=== PATIENT | male | born 1950 | race Caucasian/White ===

== ENCOUNTER 2023-05-12 17:33 | Observation (INO) | payer MEDICARE, SELFPAY ==
[2023-05-12] VITALS (13 sets, daily range): BP systolic 119–151; BP diastolic 78–95; PULSE 62–90; RESP 12–21; TEMP 36.4–37.7; O2SAT 90–97; BMI 22.2; BMI 19.9
--- NOTE | 2023-05-12 17:42 | CT_ITS ---
[address] [address] Patient Name: SEGUNDO MCCOY MRN: [id number] date: 1950 Sex: M Assigned Patient Location: ED.MAIN Current Patient Location: ED.MAIN Accession/Order Number: [id number] Exam Date: 05/12/2023 18:15 Report Date: 05/12/2023 19:09 At the request of: MONTE LO Procedure: CT abdomen pelvis wo con EXAM: CT abdomen pelvis wo con; [id number] REASON FOR EXAM: right flank pain TECHNIQUE: Helical CT images of the abdomen and pelvis were obtained without IV contrast. Multiplanar reformats were generated at the scanner. Dose reduction technique used: Automated exposure control and/or adjustment of the mA and/or kV according to patient size and/or use of iterative reconstruction technique. COMPARISON: None. FINDINGS: Note: Compared with a contrast-enhanced CT exam, noncontrast images are relatively insensitive for detection of solid organ and vascular abnormalities. Visualized Chest: -Mild right basilar consolidation. -Medium-sized hiatal hernia containing approximately 15% of the stomach. Abdomen: Liver: Within normal limits. Gallbladder: No calcified gallstones. No acute inflammatory changes. Bile Ducts: No significant biliary ductal dilatation. Pancreas: No ductal dilatation or inflammatory changes. Spleen: No splenomegaly. Adrenals: No nodules. Kidneys: -No stones or hydronephrosis. -Simple appearing right renal cyst measuring up to 3.7 cm. Vascular: No aortic aneurysm. Lymph Nodes: No adenopathy. Abdominal Wall: Large right inguinal hernia containing the ileocecal valve and intra-abdominal fat. Small fat-containing left inguinal hernia and a small fat-containing umbilical hernia. Pelvis: No mass or adenopathy. Bowel/Peritoneal Cavity/Mesentery: -Minimal colonic diverticulosis without evidence of acute diverticulitis. -No bowel obstruction or significant ileus. -No acute inflammatory changes. -No free air or free fluid. Musculoskeletal: No acute fracture or suspicious osseous lesion. Grade 2 anterolisthesis of L5 on S1 secondary to chronic bilateral pars defects. CT/CT abdomen pelvis wo con IMPRESSION: 1. Right basilar consolidation. Differential includes aspiration, pneumonia, and pulmonary infarct. 2. No kidney stones or hydronephrosis. 3. Large bowel-containing right inguinal hernia. No evidence of bowel obstruction. Electronically authenticated by: NICOLASA DELACRUZ Date: 05/12/2023 19:09
[2023-05-12] MEDS: HYDROMORPHONE HCL 0.5 MG/0.5 ML SYRINGE IV ×3 (17:55→23:57)
[2023-05-12] MEDS: ONDANSETRON PF 4 MG/2 ML VIAL IV (17:55)
[2023-05-12] MEDS: KETOROLAC TROMETHAMINE 30 MG/ML VIAL IVP (17:55)
[2023-05-12 18:15] LABS: Bilirubin Urine NEGATIVE (NEGATIVE); Blood Urine NEGATIVE (NEGATIVE); Clarity Urine CLEAR (CLEAR); Color Urine YELLOW (YELLOW); Glucose Urine UA NEGATIVE (NEGATIVE); Ketones Urine NEGATIVE (NEGATIVE); Leukocyte Esterase Urine NEGATIVE (NEGATIVE); Nitrite Urine NEGATIVE (NEGATIVE); Protein Urine NEGATIVE (NEG/TRACE); Specific Gravity Urine 1.025 (1.005-1.025); pH Urine 5.5 (5.0-9.0)
[2023-05-12 18:18] LABS: Anion Gap 14.5; BUN Creatinine Ratio 15.1; Calcium 9.5 mg/dL (8.5-10.1); Carbon Dioxide 28.3 mmol/L (21.0-32.0); Chloride 104 mmol/L (98-107); Estimated GFR (African America >60 (>=60); Estimated GFR (Non-African Ame >60 (>=60); Glucose 123 mg/dL (74-106); Potassium 3.8 mmol/L (3.5-5.1); Sodium 143 mmol/L (136-145)
[2023-05-12 18:25] LABS: Urine Microscopic Indicated NO
[2023-05-12 18:27] LABS: Basophils Absolute Auto 0.1 10^3/uL (0.0-0.1); Basophils Percent Auto 0.5 % (0.2-2.0); Eosinophils Absolute Auto 0.1 10^3/uL (0.0-0.7); Eosinophils Percent Auto 0.9 % (0.9-7.0); Hemoglobin 14.6 g/dL (14.0-18.0); Immature Granulocytes Abs Auto 0.04 10^3/uL (0.00-0.03); Immature Granulocytes Pct Auto 0.3 % (0.0-0.5); Lymphocytes Absolute Auto 2.7 10^3/uL (1.2-3.8); Lymphocytes Percent Auto 18.1 % (20.5-60.0); Mean Corpuscular HGB Conc 33.2 g/dL (29.9-35.2); Mean Corpuscular Hemoglobin 32.1 pg (25.9-34.0); Mean Corpuscular Volume 96.7 fL (80.0-94.0); Mean Platelet Volume 9.4 fL (9.5-13.5); Monocytes Absolute Auto 1.6 10^3/uL (0.3-0.8); Monocytes Percent Auto 10.5 % (1.7-12.0); Neutrophils Absolute Auto 10.4 10^3/uL (1.4-6.5); Neutrophils Percent Auto 69.7 % (43.0-75.0); Platelet Count 274 10^3/uL (150-450); Red Blood Count 4.55 10^6/uL (4.70-6.10); Red Cell Distribution Width 13.7 % (11.0-15.0); White Blood Count 14.9 10^3/uL (4.0-11.0)
--- NOTE | 2023-05-12 18:57 | ED_ITS ---
HPI - General Adult General Chief complaint: Abdominal Pain Stated complaint: Flank Pain right side Time Seen by Provider: 05/12/23 17:36 Source: patient Mode of arrival: walk-in Limitations: no limitations History of Present Illness HPI narrative: Patient presents with sudden onset of pain just below the right scapula in what he describes the right flank but is actually in the lower part of the posterior right rib cage. He denied any recent injury or activity that might account for this pain. It is worse with movement of the torso, coughing or deep breath. He sometimes as he moves will suddenly wince in pain as it catches he told me. No GI or symptoms. No fever or chills. No cough. Related Data Allergies Allergy/AdvReac Type Severity Reaction Status Date / Time No Known Drug Allergies Allergy Verified 05/12/23 17:41 Exam Narrative Exam Narrative: Nurses notes and vital signs reviewed and patient is not hypoxic. Afebrile General: Well-appearing and in no apparent distress. Skin: Warm, dry, no pallor noted. No rash. Eye: Pupils are equal, round and EOMI. No scleral icterus. Ears, Nose, Mouth, and Throat: Oral mucosa is moist Cardiovascular: Regular Rate and Rhythm without murmur, gallop or rub. Respiratory: No accessory muscle use or respiratory distress. Lungs are clear to auscultation, no wheezing, rales or rhonchi Chest Wall: no tenderness Back: No midline thoracic or lumbar vertebral tenderness. No CVA tenderness. He has tenderness along the posterolateral right ribs inferior to the scapula but superior to the costovertebral angle. Musculoskeletal: normal ROM, no calf or popliteal tenderness, no lower e xtremity edema/swelling GI: Abdomen is soft, non-distended. Normal bowel sounds. No masses appreciated. No tenderness to palpation. No rebound, guarding, or rigidity noted. Neurological: A&O x4. No cranial nerve dysfunction observed. No truncal ataxia. Moves all extremities. Sensation intact. Psychiatric: Cooperative and interactive. Normal mood and affect. Constitutional Vital Signs, click to edit/add: Last Vital Signs Temp 97.6 F 05/12/23 17:37 Pulse 77 05/12/23 17:37 Resp 16 05/12/23 17:37 BP 151/95 H 05/12/23 17:37 O2 Del Method Room Air 05/12/23 17:37 Course Vital Signs Vital signs: Vital Signs Temperature 97.6 F 05/12/23 17:37 Pulse Rate 77 05/12/23 17:37 Respiratory Rate 16 05/12/23 17:37 Blood Pressure 151/95 H 05/12/23 17:37 Oxygen Delivery Method Room Air 05/12/23 17:37 Temperature 97.6 F 05/12/23 17:37 Pulse Rate 77 05/12/23 17:37 Respiratory Rate 16 05/12/23 17:37 Blood Pressure 151/95 H 05/12/23 17:37 Oxygen Delivery Method Room Air 05/12/23 17:37 Medical Decision Making MDM Narrative Medical decision making narrative: Peripheral IV established that we give this patient pain medicine. He received Toradol and low-dose Dilaudid. He was markedly improved afterwards. Blood and urine were sent for testing. He has a white blood cell count of 14.9. BMP and urine are negative. CT scan is pending. Patient signed out to Dr. Phillips at 7 PM shift change to follow-up with CT result and determine final disposition for this patient. Lab Data Labs: Lab Results 05/12/23 05/12/23 Range/Units 17:59 18:06 WBC 14.9 H (4.0-11.0) 10^3/uL RBC 4.55 L (4.70-6.10) 10^6/uL Hgb 14.6 (14.0-18.0) g/dL Hct 44.0 (42.0-54.0) % MCV 96.7 H (80.0-94.0) fL MCH 32.1 (25.9-34.0) pg MCHC 33.2 (29.9-35.2) g/dL RDW 13.7 (11.0-15.0) % Plt Count 274 (150-450) 10^3/uL MPV 9.4 L (9.5-13.5) fL Neut % (Auto) 69.7 (43.0-75.0) % Lymph % (Auto) 18.1 L (20.5-60.0) % [place] % (Auto) 10.5 (1.7-12.0) % Eos % (Auto) 0.9 (0.9-7.0) % Baso % (Auto) 0.5 (0.2-2.0) % Neut # (Auto) 10.4 H (1.4-6.5) 10^3/uL Lymph # (Auto) 2.7 (1.2-3.8) 10^3/uL [place] # (Auto) 1.6 H (0.3-0.8) 10^3/uL Eos # (Auto) 0.1 (0.0-0.7) 10^3/uL Baso # (Auto) 0.1 (0.0-0.1) 10^3/uL Abs Immat Gran (auto) 0.04 H (0.00-0.03) 10^3/uL Imm/Tot Granulo (auto) 0.3 (0.0-0.5) % Sodium 143 (136-145) mmol/L Potassium 3.8 (3.5-5.1) mmol/L Chloride 104 (98-107) mmol/L Carbon Dioxide 28.3 (21.0-32.0) mmol/L Anion Gap 14.5 BUN 16.0 (7.0-18.0) mg/dL Creatinine 1.06 (0.70-1.30) mg/dL Est GFR ( Amer) >60 (>=60) Est GFR (Non-Af Amer) >60 (>=60) BUN/Creatinine Ratio 15.1 Glucose 123 H (74-106) mg/dL Calcium 9.5 (8.5-10.1) mg/dL Urine Color Yellow (YELLOW) Urine Clarity Clear (CLEAR) Urine pH 5.5 (5.0-9.0) Ur Specific [place] 1.025 (1.005-1.025) Urine Protein Negative (NEG/TRACE) mg/dL Urine Glucose (UA) Negative (NEGATIVE) mg/dL Urine Ketones Negative (NEGATIVE) mg/dL Urine Occult Blood Negative (NEGATIVE) Urine Nitrite Negative (NEGATIVE) Urine Bilirubin Negative (NEGATIVE) Urine Urobilinogen 1.0 (0.2-1.0) EU/dL Ur Leukocyte Esterase Negative (NEGATIVE) Discharge Plan Discharge Chief Complaint: Abdominal Pain Clinical Impression: Back pain Patient Disposition: Still a Patient Print Language: Slovak Referrals: Angelito Shore MD [Primary Care Provider] - 1 week
--- NOTE | 2023-05-12 19:19 | CT_ITS ---
The [address] [address] Patient Name: SEGUNDO MCCOY MRN: [id number] date: 1950 Sex: M Assigned Patient Location: ER Current Patient Location: Accession/Order Number: [id number] Exam Date: 05/12/2023 19:38 Report Date: 05/12/2023 20:16 At the request of: SUYAPA HALLMAN Procedure: CT angio chest CT angio chest 05/12/2023 6:38 PM CDT: History: Abn CT abdomen w/o contrast, rule out PE/infarct Chest pain. Possible pulmonary embolism. Comparison: None. Technique: IV Contrast enhanced CTA imaging of the chest. Sagittal and coronal MIP reformatted images are provided. This CT exam was performed using one or more of the following dose reduction techniques: Automated exposure control, adjustment of the mA and/or KV according to patient size, or use of iterative reconstruction technique. Findings: The central airway is midline and patent. There is a 5 mm left lower lobe pulmonary nodule. There is bibasilar atelectasis. There are groundglass infiltrates in both lung bases, right greater than left. There is a trace right pleural effusion. The heart is enlarged. There is no pericardial effusion. There are acute pulmonary emboli involving a few of the peripheral segmental pulmonary arteries of the right lower lobe. There is no evidence of right heart strain. There is a downstream infarct to the periphery of the right lower lobe lung base. There is a moderate size hiatal hernia. Limited imaging through the upper abdomen reveals no acute abnormality. There is degenerative disc disease of the thoracic spine. There are calcified mediastinal lymph nodes reflecting old granulomatous disease. There is advanced degenerative change of both shoulders. CT/CT angio chest Impression: 1. Acute right lower lobe pulmonary emboli without evidence of right heart strain. 2. Developing right lower lobe pulmonary infarct. 3. Trace right pleural effusion. 4. 5 mm left lower lobe pulmonary nodule. Recommend follow-up CT imaging of the chest and 6-12 months. Electronically authenticated by: RUTH HILL Date: 05/12/2023 20:16
[2023-05-12 20:35] LABS: Partial Thromboplastin Time 27.6 sec (22.3-36.2)
--- NOTE | 2023-05-12 20:38 | ECG_ITS ---
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
[2023-05-12 20:45] LABS: INR 0.99; Prothrombin Time 10.5 sec (9.0-11.6)
[2023-05-12] MEDS: HEPARIN SODIUM (PORCINE) 5,000 UNIT/ML VIAL 5400 UNIT IV (21:25)
[2023-05-12] MEDS: HEPARIN SODIUM,PORCINE/D5W 25,000 UNIT/500 ML IV.SOLN 24.4939999999999998 UNIT IV (21:31)
[2023-05-13] VITALS (58 sets, daily range): BP systolic 107–143; BP diastolic 67–89; PULSE 46–71; RESP 11–27; TEMP 36.6–37.3; O2SAT 92–99
[2023-05-13] MEDS: RAMELTEON 8 MG TABLET PO (00:50)
[2023-05-13] MEDS: HYDROMORPHONE HCL 0.5 MG/0.5 ML SYRINGE IV (03:13)
[2023-05-13 03:37] LABS: Basophils Absolute Auto 0.1 10^3/uL (0.0-0.1); Basophils Percent Auto 0.4 % (0.2-2.0); Eosinophils Absolute Auto 0.1 10^3/uL (0.0-0.7); Eosinophils Percent Auto 0.9 % (0.9-7.0); Hematocrit 36.5 % (42.0-54.0); Hemoglobin 12.1 g/dL (14.0-18.0); Immature Granulocytes Abs Auto 0.17 10^3/uL (0.00-0.03); Immature Granulocytes Pct Auto 1.3 % (0.0-0.5); Lymphocytes Absolute Auto 3.7 10^3/uL (1.2-3.8); Lymphocytes Percent Auto 27.4 % (20.5-60.0); Mean Corpuscular HGB Conc 33.2 g/dL (29.9-35.2); Mean Corpuscular Hemoglobin 31.9 pg (25.9-34.0); Mean Corpuscular Volume 96.3 fL (80.0-94.0); Mean Platelet Volume 9.2 fL (9.5-13.5); Monocytes Absolute Auto 1.2 10^3/uL (0.3-0.8); Monocytes Percent Auto 8.6 % (1.7-12.0); Neutrophils Absolute Auto 8.3 10^3/uL (1.4-6.5); Neutrophils Percent Auto 61.4 % (43.0-75.0); Platelet Count 203 10^3/uL (150-450); Red Blood Count 3.79 10^6/uL (4.70-6.10); Red Cell Distribution Width 13.9 % (11.0-15.0); White Blood Count 13.5 10^3/uL (4.0-11.0)
[2023-05-13 03:42] LABS: Alanine Aminotransferase 15 U/L (16-63); Albumin Globulin Ratio 0.9; Albumin Level 2.8 g/dL (3.4-5.0); Alkaline Phosphatase 53 U/L (46-116); Anion Gap 10.4; Aspartate Amino Transferase 16 U/L (15-37); BUN Creatinine Ratio 18.9; Calcium 8.4 mg/dL (8.5-10.1); Carbon Dioxide 27.7 mmol/L (21.0-32.0); Chloride 105 mmol/L (98-107); Estimated GFR (African America >60 (>=60); Estimated GFR (Non-African Ame >60 (>=60); Globulin 3.2 g/dL; Glucose 144 mg/dL (74-106); Potassium 3.1 mmol/L (3.5-5.1); Sodium 140 mmol/L (136-145)
[2023-05-13 04:11] LABS: PTT Heparin Monitor 121.9 sec (48.2-68.6)
[2023-05-13] MEDS: HYDROCODONE/ACET 5-325 MG TABLET 1 TAB PO ×2 (08:12→12:13)
[2023-05-13] MEDS: ATORVASTATIN CALCIUM 40 MG TABLET PO (08:12)
[2023-05-13] MEDS: AMLODIPINE BESYLATE 5 MG TABLET 2.5 MG PO (08:12)
[2023-05-13] MEDS: CHLORTHALIDONE 25 MG TABLET PO (08:12)
[2023-05-13] MEDS: METOPROLOL SUCCINATE 25 MG TAB.ER.24H PO (08:13)
[2023-05-13] MEDS: LOSARTAN POTASSIUM 50 MG TABLET 100 MG PO (08:13)
[2023-05-13] MEDS: OMEPRAZOLE 20 MG CAPSULE.DR PO (08:13)
[2023-05-13 08:27] LABS: PTT Heparin Monitor 31.4 sec (48.2-68.6)
--- NOTE | 2023-05-13 08:52 | CA_ITS ---
Patient Name: SEGUNDO MCCOY MR#: [id number] : 1950 Exam Date: 05/13/2023 Ordering Doctor: DR Casa Marquis . ECHOCARDIOGRAM REPORT PROCEDURE: CA ECHO DOPPLER COMPLETE INDICATIONS: Pulmonary emboli, h/o DE, hypertension COMPARISON: None. DESCRIPTION: COMPLETE ECHOCARDIOGRAM Real-time transthoracic echocardiography with 2D, M-mode, spectral and color flow Doppler performed. QUALITY: Technical quality was good. 70 , 138#, BSA 1.78 m2, BP 143/80 LEFT VENTRICLE: Normal chamber size. Proximal septal hypertrophy (sigmoid septum). Normal systolic function. LV EF: Normal left ventricular ejection fraction, (>55%). DIASTOLIC: Normal diastolic function. ATRIAL SEPTUM: LEFT ATRIUM: Mild dilatation. RIGHT ATRIUM: Normal chamber size. RIGHT VENTRICLE: Normal chamber size. Normal right ventricular systolic function. TRICUSPID VALVE: Normal mobility and thickness. No stenosis with trivial regurgitation. No evidence of pulmonary hypertension. RVSP 34 mmHg MITRAL VALVE: Normal mobility and thickness. No evidence of mitral valve stenosis. There is no mitral annular calcification. Trivial mitral regurgitation. AORTIC VALVE: Normal trileaflet appearance. Mildly calcified aortic valve. Mildly diminished mobility. No evidence of aortic valve stenosis. No aortic regurgitation. AORTIC ROOT: Normal diameter and appearance. PULMONIC VALVE: Normal thickness and mobility. No stenosis. No regurgitation. PERICARDIUM: No evidence of pericardial effusion. IVC: Not well visualized. PLEURA: CONCLUSION: 1. Normal left ventricular size and systolic function. LVEF is 60%. 2. Normal right ventricular size and systolic function. 3. No significant valvular dysfunction. 4. Normal diastolic function. 5. Normal right-sided pressures. Adult Echocardiography Procedure Report Left Ventricle LVEDD (3.7 - 5.6 cm): 3.72 cm LVESD (2.2 - 4.0 cm): 2.47 cm LVIVS thickness (0.6 - 1.2 cm): 1.26 cm LVPW thickness (0.5 - 1.0 cm): 1.00 cm e': 0.11 m/s E - e': 8.45 LVOT Max Gradient: 7.44 mm[Hg] LVOT Area (cm2): 1.36 m/s Peak Velocity (LVOT): 1.36 m/s Mean Velocity (LVOT): 0.90 m/s LVOT Diameter 2.40 cm Left Atrium LA Volume Index (2D A2C): 38.49 ml/m2 Left Atrium Systolic Dimension: 3.59 cm Mitral Valve MV E to A Ratio: 0.97 Mitral Valve A-Wave Peak Velocity: 0.94 m/s Mitral Valve E-Wave Peak Velocity: 0.91 m/s Right Ventricle Aorta AO Root Diam: 3.82 cm Ascending Ao Diam: 3.02 cm Aortic Valve AoV Area ([place]): 4.05 cm2, 4.05 cm2 AoV Area (VTI): 3.65 cm2, 3.65 cm2 Peak Velocity(Antegrade Flow): 1.53 m/s Peak Gradient(Antegrade Flow): 9.32 mm[Hg] Mean Velocity(Antegrade Flow): 1.05 m/s Mean Gradient(Antegrade Flow): 5.09 mm[Hg] Velocity Time Integral: 35.54 cm Tricuspid Valve Peak Velocity (Regurgitant Flow): 2.50 m/s, 2.76 m/s Pulmonic Valve Peak Velocity: 0.85 m/s Peak Gradient: 2.80 mm[Hg], 3.00 mm[Hg] Right Atrium Dictated by: Ashkan Doll M.D. on 05/13/2023 at 18:03 Approved by: Ashkan Doll M.D. on 05/13/2023 at 18:06
[2023-05-13] MEDS: POTASSIUM CHLORIDE 10 MEQ ER TABLET 20 MEQ PO (09:00)
[2023-05-13] MEDS: APIXABAN 5 MG TABLET 10 MG PO (09:00)
--- NOTE | 2023-05-13 09:17 | SWNOTE1 ---
SW consulted due to financial concerns, issues with paying medical bills. SW spoke with pt in regards to his medical bills/financial concerns. Pt voiced he was up at [facility] around [place] and he is getting bills for his stay. He also voiced his was down in the Emergency Room a few weeks ago at this hospital. SW advised pt that many hospitals are willing to set up a payment plan with pt's, as long as a pt is able to pay something, even if it $20 a month, they will work with you. He did voice understanding. SW advised him to call the hospitals and speak to someone in patient finances and they will be able to assist. Pt does have insurance and he voiced they have been good and cover most of the bills. Pt does voice he is doing well at home and is at home with his . No other concerns financially. They are able to afford housing, food, electric/heat, and other bills. At this time pt has no further questions or concerns.
--- NOTE | 2023-05-13 09:28 | US_ITS ---
The [address] [address] Patient Name: SEGUNDO MCCOY MRN: [id number] date: 1950 Sex: M Assigned Patient Location: ICU Current Patient Location: ICU Accession/Order Number: [id number] Exam Date: 05/13/2023 13:25 Report Date: 05/13/2023 15:19 At the request of: CECIL FLORENCE Procedure: US venous doppler UE BI US venous doppler UE BI, 05/13/2023 1:25 PM EDT INDICATION: Pulmonary embolism COMPARISON: No prior upper extremity venous ultrasound available for comparison at time of this dictation. TECHNIQUE: Multi-planar real-time ultrasonography of the bilateral upper extremity venous system using grayscale imaging supplemented by color Doppler. Augmentation and compression maneuvers were utilized as needed. FINDINGS: The jugular, subclavian, axillary, brachial, antecubital, basilic, radial and ulnar veins are fully compressible with continuous antegrade flow. Distal right cephalic vein with echogenic filling defect, lack of compressibility and absence of vascular flow. Left cephalic vein fully compressible with vascular flow. Respiratory variation and response to augmentation normal. US/US venous doppler UE BI IMPRESSION: 1. Negative for deep venous thrombosis within either upper extremity. 2. Positive superficial thrombus right distal cephalic vein. Electronically authenticated by: LESVIA NEUMANN Date: 05/13/2023 15:19
--- NOTE | 2023-05-13 09:28 | US_ITS ---
The [place] [id number] Patient Name: SEGUNDO MCCOY MRN: [id number] date: 1950 Sex: M Assigned Patient Location: ICU Current Patient Location: ICU Accession/Order Number: [id number] Exam Date: 05/13/2023 13:25 Report Date: 05/13/2023 15:00 At the request of: CECIL FLORENCE Procedure: US venous doppler LE BI EXAMINATION: US venous doppler LE BI HISTORY: origin of PE COMPARISON: No relevant comparison available. FINDINGS: REGION: Bilateral lower extremities THROMBI: Noncompressible thrombus involving the left common femoral, femoral, popliteal, and calf veins. COMPRESSIBILITY: Noncompressible segments. FLOW: Absent flow on left. OTHER: None. US/US venous doppler LE BI IMPRESSION: 1. Extensive deep vein thrombus throughout left lower extremity. 2. No deep vein thrombus within right lower extremity. Electronically authenticated by: MADISON SUERO Date: 05/13/2023 15:00
[2023-05-13 09:54] LABS: Estimated Average Glucose 105 mg/dL; Glycohemoglobin A1C 5.3 % (4.5-6.2)
--- NOTE | 2023-05-13 10:16 | PM.HP ---
HPI H&P: HPI History of Present Illness Chief complaint: Flank Pain right side Pulmondry embolism Narrative: 72 y/o male to ER with back pain. C/o pain in right mid back below scapula and in flank for several days prior. Initially sudden, sharp pain that lasted few seconds. Pain worse with movement, twisting, inspiration, or cough. Day admission developed severe pain and constant. Mild SOB and chest discomfort. No cough. Afebrile. To ER and CT abdomen showed right basilar consolidation suspicious for infiltrate vs infarct. CTA showed PE. Admitted for treatment. Started heparin drip but PTT elevated and held. Repeat PTT low. Denies any recent prolonged imobilization or travel. No recent URI or covid. No family history of DVT or PE. No recent swelling in feet or arms. Opioid HPI Opioid Management Most Recent Opioid Data: Last Pain Assessment 05/13/23 14:00 Last MAR Pain Assessment 05/13/23 04:38 Last ORT Total Score 0 05/12/23 22:18 Last ORT Risk Category Low Risk 05/12/23 22:18 Review of Systems ROS Constitutional Denies: fever, chills or fatigue Cardiovascular Reports: chest pain; Denies: palpitations, edema or lightheadedness Respiratory Reports: shortness of breath; Denies: cough or wheezing Gastrointestinal Denies: abdominal pain, nausea, vomiting or diarrhea Genitourinary Denies: painful urination Musculoskeletal Reports: back pain PFSH PFSH Medical History (Updated 05/13/23 @ 14:47 by Casa Marquis MD) Back pain ?M54.9 - Dorsalgia, unspecified (ICD-10) Inguinal hernia ?K40.90 - Unilateral inguinal hernia, without obstruction or gangrene, not specified as recurrent (ICD-10) Elevated cholesterol ?E78.00 - Pure hypercholesterolemia, unspecified (ICD-10) Heart attack ?I21.9 - Acute myocardial infarction, unspecified (ICD-10) Family History (Updated 05/12/23 @ 23:10 by Linnette Chavarria RN) Mother Family history of COPD (chronic obstructive pulmonary disease) Family history of cancer Mother Family history of cancer Father Family history of hypertension Other Family history of myocardial infarction Social History Highest level of school completed/degree received: high school graduate Meds Home Medications and Allergies Home Medications ?Medication ?Instructions ?Recorded ?Confirmed ?Type amlodipine 2.5 mg tablet 2.5 mg PO DAILY 05/12/23 05/12/23 History atorvastatin 40 mg tablet 40 mg PO DAILY 05/12/23 05/12/23 History chlorthalidone 25 mg tablet 25 mg PO DAILY 05/12/23 05/12/23 History losartan 100 mg tablet 100 mg PO DAILY 05/12/23 05/12/23 History melatonin 10 mg tablet 10 mg PO DAILY 05/12/23 05/12/23 History metoprolol succinate 25 mg 25 mg PO DAILY 05/12/23 05/12/23 History tablet,extended release 24 hr omeprazole 20 mg capsule,delayed 20 mg PO DAILY 05/12/23 05/12/23 History release potassium chloride 20 mEq 20 meq PO DAILY 05/12/23 05/12/23 History tablet,extended release apixaban 5 mg tablet (Eliquis) See Rx Instructions .Route 05/13/23 Rx .COMPLEX #74 tabs hydrocodone 5 mg-acetaminophen 325 1 tab PO QID PRN Pain 7 days #28 05/13/23 Rx mg tablet tabs Allergies Allergy/AdvReac Type Severity Reaction Status Date / Time No Known Drug Allergies Allergy Verified 05/12/23 17:41 Exam Constitutional Vital Signs, click to edit/add: Last Vital Signs Temp 98.2 F 05/13/23 07:00 Pulse 52 L 05/13/23 08:00 Resp 16 05/13/23 08:00 BP 143/80 H 05/13/23 08:12 Pulse Ox 98 05/13/23 08:00 O2 Del Method Room Air 05/13/23 03:00 Documenting provider has reviewed patient's vital signs: yes Common normals: oriented x3 and alert HENMT Common normals: normocephalic Eye Common normals: PERRL and EOMs intact bilaterally Respiratory Common normals: normal respiratory effort and clear to auscultation bilaterally Cardio Common normals: regular rate, regular rhythm, no gallops, no murmurs and no rub GI Common normals: Normal to inspection, nondistended, normoactive bowel sounds present and non-tender Extremity Common normals: no pedal edema Results Labs Labs: Short CBC 05/12/23 05/13/23 Range/Units 17:59 03:21 WBC 14.9 H 13.5 H (4.0-11.0) 10^3/uL Hgb 14.6 12.1 L (14.0-18.0) g/dL Hct 44.0 36.5 L (42.0-54.0) % Plt Count 274 203 (150-450) 10^3/uL BMP 05/12/23 05/13/23 17:59 03:21 Sodium 143 140 Potassium 3.8 3.1 L Chloride 104 105 Carbon Dioxide 28.3 27.7 BUN 16.0 17.0 Creatinine 1.06 0.90 Glucose 123 H 144 H Calcium 9.5 8.4 L Liver Function 05/13/23 Range/Units 03:21 Total Bilirubin 1.0 (0.2-1.0) mg/dL AST 16 (15-37) U/L ALT 15 L (16-63) U/L Alkaline Phosphatase 53 (46-116) U/L Albumin 2.8 L (3.4-5.0) g/dL Urine 05/12/23 Range/Units 18:06 Urine Color Yellow (YELLOW) Urine Clarity Clear (CLEAR) Urine pH 5.5 (5.0-9.0) Ur Specific [place] 1.025 (1.005-1.025) Urine Protein Negative (NEG/TRACE) mg/dL Urine Glucose (UA) Negative (NEGATIVE) mg/dL Imaging CT scan - chest: Attestation: I have reviewed the pertinent imaging results. Assessment and Plan Assessment and Plan (1) Pulmonary embolism: (2) Left femoral vein DVT: (3) Hypokalemia: (4) Hyperglycemia: (5) HTN (hypertension): (6) CAD (coronary artery disease): Plan Presented with pain and found PE. No risk factors for PE and considered unprovoked clot. Labs abnormal on heparin and started oral Eliquis. Resumed home medication. Pain tolerable with norco. US bilateral upper negative on left and superficial clot on right. US LLE showed DVT and occlusion of left femoral vein and right lower extremity normal. Echo preliminary interpretation normal. Discharge home. Will treat with Eliquis. Arrange for outpatient visit with vascular surgery. Use norco PRN. Will need outpatient workup to check for coagulopathy.
--- NOTE | 2023-05-13 11:12 | CM.NOTE ---
Rounds made with Dr. Marquis, possible discharge to home today after further testing.
--- NOTE | 2023-05-13 11:17 | SWNOTE1 ---
Pt is going to be sent home on Eliquis. Dr. Marquis sent prescription to [facility] in [place]. MAAME called to see what the swain would be for Eliquis. At first the accredited pharmacy technician had voiced they can not run through insurance due to the script saying 2 PO BID for 7 days, then BID after. The insurnace will not cover 2 BID, only BID. She did tell me once it is down to BID, then it would be $47.00. The pharmacist did get on the phone and tried to explain everything to SW, SW had case aide listen as well. manager finance explain that we do have free 30 day trial offer cards and pt will be using this. Pharmacist said they need new script for 30 day supply. Case management spoke with Dr. Marquis and he is submitting new script to [facility] for 74 tablets. Case management was also in room with pt and [facility] with [facility] and he would only have an $11 copay for eliquis. Pt was given free 30 day trial card for eliquis, he was advised to take this to his pharmacy.
--- NOTE | 2023-05-13 11:17 | CM.NOTE ---
Discussed with pt about Eliquis and importance of medication r/t diagnosis. Pt also given free 30 day trial of Eliquis. Pt had also contacted [facility] already regarding Eliquis and they would be able to assist him with an 11 dollar co-pay.
--- NOTE | 2023-05-13 11:19 | CM.NOTE ---
Medicare Outpatient Observation Notice discussed with pt, pt verbalizes understanding and signs paper. Original given to pt and copy placed in pt's chart.
== END 2023-05-13 15:55 | disposition home or self-care (01) ==
LOC: ER 19:05 → ICU 05-13 10:10
PROVIDERS: Emergency Medicine; Registered Nurse; Admitting Provider Family Medicine; Emergency Provider Emergency Medicine; PCP Family Medicine; Visit Provider Family Medicine
DX: I26.99 Other pulmonary embolism without acute cor pulmonale (principal); I82.412 Acute embolism and thrombosis of left femoral vein; E87.6 Hypokalemia; R73.9 Hyperglycemia, unspecified; I10 Essential (primary) hypertension; I25.10 Atherosclerotic heart disease of native coronary artery without angina pectoris; Z79.899 Other long term (current) drug therapy; E78.00 Pure hypercholesterolemia, unspecified; I25.2 Old myocardial infarction
CPT/HCPCS: 36415; 71275; 74176; 80048; 80053; 81003; 83036; 85025; 85610; 85730; 93005; 93306; 93970; 96365; 96375; 96376; 99285; G0378; J1170; Q9967

== ENCOUNTER 2023-07-26 09:17 | Observation (INO) | payer MEDICARE, SELFPAY ==
[2023-07-26] VITALS (46 sets, daily range): BP systolic 115–157; BP diastolic 72–92; PULSE 58–70; TEMP 36.8–37; O2SAT 96–99; BMI 23.0
--- NOTE | 2023-07-26 09:35 | ED_ITS ---
HPI HPI - General Adult General Chief complaint: Urogenital-Male Stated complaint: SCROTAL SWELLING Time Seen by Provider: 07/26/23 09:18 History of Present Illness HPI narrative: Patient presents to ED complaining of scrotal swelling. He said he has noticed a hard nodule on the right side of the scrotal area for a while. He said the past couple of days it started to get more tender and swollen and then it started draining malodorous fluid today. Patient is not diabetic. He has never had an abscess or infection here before. He does report that he has a hernia on that side which she has had surgery for in the past but it seems to have recurred per patient. Patient denies fever abdominal pain or back pain. He said he thinks this happened because he was wearing tight fitting underwear that seem to rub the area. No other complaints at this time and no difficulty urinating. Related Data Home Medications ?Medication ?Instructions ?Recorded ?Confirmed amlodipine 2.5 mg tablet 2.5 mg PO DAILY 05/12/23 05/12/23 atorvastatin 40 mg tablet 40 mg PO DAILY 05/12/23 05/12/23 chlorthalidone 25 mg tablet 25 mg PO DAILY 05/12/23 05/12/23 losartan 100 mg tablet 100 mg PO DAILY 05/12/23 05/12/23 melatonin 10 mg tablet 10 mg PO DAILY 05/12/23 05/12/23 metoprolol succinate 25 mg 25 mg PO DAILY 05/12/23 05/12/23 tablet,extended release 24 hr omeprazole 20 mg capsule,delayed 20 mg PO DAILY 05/12/23 05/12/23 release potassium chloride 20 mEq 20 meq PO DAILY 05/12/23 05/12/23 tablet,extended release Previous Rx's ?Medication ?Instructions ?Recorded apixaban 5 mg tablet (Eliquis) See Rx Instructions .Route 05/13/23 .COMPLEX #74 tabs hydrocodone 5 mg-acetaminophen 325 1 tab PO QID PRN Pain 7 days #28 05/13/23 mg tablet tabs Allergies Allergy/AdvReac Type Severity Reaction Status Date / Time No Known Drug Allergies Allergy Verified 05/12/23 17:41 Opioid HPI Opioid Management Most Recent Opioid Data: Last Pain Scale 5 07/26/23 09:59 Last ORT Total Score 0 05/12/23 22:18 Last ORT Risk Category Low Risk 05/12/23 22:18 Review of Systems ROS Status of ROS 10 or more systems reviewed and unremark able except as noted in history and below [facility] Medical History (Updated 07/26/23 @ 14:38 by Kortney Arauz DO) Left femoral vein DVT ?I82.412 - Acute embolism and thrombosis of left femoral vein (ICD-10) Pulmonary embolism ?I26.99 - Other pulmonary embolism without acute cor pulmonale (ICD-10) Hypokalemia ?E87.6 - Hypokalemia (ICD-10) Hyperglycemia ?R73.9 - Hyperglycemia, unspecified (ICD-10) CAD (coronary artery disease) ?I25.10 - Atherosclerotic heart disease of [place] coronary artery without angina pectoris (ICD-10) HTN (hypertension) ?I10 - Essential (primary) hypertension (ICD-10) Back pain ?M54.9 - Dorsalgia, unspecified (ICD-10) Inguinal hernia ?K40.90 - Unilateral inguinal hernia, without obstruction or gangrene, not specified as recurrent (ICD-10) Elevated cholesterol ?E78.00 - Pure hypercholesterolemia, unspecified (ICD-10) Heart attack ?I21.9 - Acute myocardial infarction, unspecified (ICD-10) Family History (Updated 05/12/23 @ 23:10 by Linnette Chavarria RN) Mother Family history of COPD (chronic obstructive pulmonary disease) Family history of cancer Mother Family history of cancer Father Family history of hypertension Other Family history of myocardial infarction Social History Highest level of school completed/degree received: high school graduate Exam Narrative Exam Narrative: General: alert, no acute distress Cardiovascular: regular rate and rhythm, normal peripheral perfusion. Respiratory: Lungs CTA, respirations non labored. Extremities: no deformity, no trauma. Neurological: oriented x 4, LOC appropriate for age. Patient has swelling to the scrotum worse on the right side. He does have an area of induration about 3 x 2 cm area on the right lateral scrotum. Malodorous purulent drainage is able to be expressed. Cultures obtained. No lower abdominal tenderness Constitutional Vital Signs, click to edit/add: Last Vital Signs Temp 98.2 F 07/26/23 09:38 Pulse 58 L 07/26/23 09:38 Resp 17 07/26/23 09:38 BP 157/83 H 07/26/23 09:38 Pulse Ox 99 07/26/23 09:38 O2 Del Method Room Air 07/26/23 09:38 Course Vital Signs Vital signs: Vital Signs Temperature 98.2 F 07/26/23 09:38 Pulse Rate 58 L 07/26/23 09:38 Respiratory Rate 17 07/26/23 09:38 Blood Pressure 157/83 H 07/26/23 09:38 Pulse Oximetry 99 07/26/23 09:38 Oxygen Delivery Method Room Air 07/26/23 09:38 Temperature 98.2 F 07/26/23 09:38 Pulse Rate 58 L 07/26/23 09:38 Respiratory Rate 17 07/26/23 09:38 Blood Pressure 157/83 H 07/26/23 09:38 Pulse Oximetry 99 07/26/23 09:38 Oxygen Delivery Method Room Air 07/26/23 09:38 Medical Decision Making MDM Narrative Medical decision making narrative: Patient has an elevated white blood cell count. His CT scan shows a fluid collection consistent with a scrotal abscess and scrotal wall thickening consistent with scrotal cellulitis. No evidence of gas on CT.Patient was given IV vancomycin here in ED. I spoke to the hospitalist here and he said we do not have any urology coverage in the next couple of days and patient will need to be transferred out in case surgical approach is needed. Patient is comfortable with care plan for transfer and patient would prefer [facility]. I called and spoke to Dr. Curtis [facility] urologist who does accept the patient. He will be transferred to [facility] for definitive care Differential Diagnosis Differential Diagnosis: Scrotal abscess Cony's gangrene scrotal cellulitis Medical Records Medical records reviewed: Yes I reviewed the patient's medical records Lab Data Lab results reviewed: Yes I reviewed the patient's lab results Labs: Lab Results 07/26/23 07/26/23 Range/Units 09:55 09:56 WBC 13.4 H (4.0-11.0) 10^3/uL RBC 4.47 L (4.70-6.10) 10^6/uL Hgb 14.4 (14.0-18.0) g/dL Hct 42.7 (42.0-54.0) % MCV 95.5 H (80.0-94.0) fL MCH 32.2 (25.9-34.0) pg MCHC 33.7 (29.9-35.2) g/dL RDW 14.2 (11.0-15.0) % Plt Count 273 (150-450) 10^3/uL MPV 8.9 L (9.5-13.5) fL Neut % (Auto) 71.7 (43.0-75.0) % Lymph % (Auto) 14.4 L (20.5-60.0) % Burt % (Auto) 11.9 (1.7-12.0) % Eos % (Auto) 1.2 (0.9-7.0) % Baso % (Auto) 0.4 (0.2-2.0) % Neut # (Auto) 9.6 H (1.4-6.5) 10^3/uL Lymph # (Auto) 1.9 (1.2-3.8) 10^3/uL Burt # (Auto) 1.6 H (0.3-0.8) 10^3/uL Eos # (Auto) 0.2 (0.0-0.7) 10^3/uL Baso # (Auto) 0.1 (0.0-0.1) 10^3/uL Abs Immat Gran (auto) 0.05 H (0.00-0.03) 10^3/uL Imm/Tot Granulo (auto) 0.4 (0.0-0.5) % Sodium 142 (136-145) mmol/L Potassium 3.3 L (3.5-5.1) mmol/L Chloride 103 (98-107) mmol/L Carbon Dioxide 28.5 (21.0-32.0) mmol/L Anion Gap 13.8 BUN 16.0 (7.0-18.0) mg/dL Creatinine 0.84 (0.70-1.30) mg/dL Est GFR ( Amer) >60 (>=60) Est GFR (Non-Af Amer) >60 (>=60) BUN/Creatinine Ratio 19.0 Glucose 110 H (74-106) mg/dL Lactate 1.3 (0.4-2.0) mmol/L Calcium 9.6 (8.5-10.1) mg/dL Total Bilirubin 1.6 H (0.2-1.0) mg/dL AST 21 (15-37) U/L ALT 30 (16-63) U/L Alkaline Phosphatase 66 (46-116) U/L Total Protein 7.5 (6.4-8.2) g/dL Albumin 3.4 (3.4-5.0) g/dL Globulin 4.1 g/dL Albumin/Globulin Ratio 0.8 Urine Color Yellow (YELLOW) Urine Clarity Clear (CLEAR) Urine pH 6.5 (5.0-9.0) Ur Specific [place] 1.010 (1.005-1.025) Urine Protein Negative (NEG/TRACE) mg/dL Urine Glucose (UA) Negative (NEGATIVE) mg/dL Urine Ketones Negative (NEGATIVE) mg/dL Urine Occult Blood Negative (NEGATIVE) Urine Nitrite Negative (NEGATIVE) Urine Bilirubin Negative (NEGATIVE) Urine Urobilinogen 1.0 (0.2-1.0) EU/dL Ur Leukocyte Esterase Negative (NEGATIVE) Imaging Data CT scan - abdomen: Radiologist's impression: ITS Impressions Pelvis CT 07/26/23 09:45 IMPRESSION: 1. Scrotal wall thickening concerning for cellulitis. Focal fluid collection within the wall the right scrotum concerning for abscess. No soft tissue gas. 2. Right scrotal extratesticular cystic lesion. In addition, there is a cystic lesion within the right testi. If indicated, suggest scrotal ultrasound for further evaluation. 3. Other nonemergent findings, as described above. Electronically authenticated by: MURTAZA SALGADO Date: 07/26/2023 12:17 Discharge Plan Discharge Stand Alone Forms: Portal Instructions Chief Complaint: Urogenital-Male Clinical Impression: Cellulitis of scrotum, Abscess of scrotum Patient Disposition: [facility] Time of Disposition Decision: 14:38 Discharge location: [facility] Condition: Fair Mode of Transportation: EMS Prescriptions / Home Meds: No Action atorvastatin 40 mg tablet 40 mg PO DAILY metoprolol succinate 25 mg tablet extended release 24 hr 25 mg PO DAILY potassium chloride 20 mEq tablet extended release 20 meq PO DAILY losartan 100 mg tablet 100 mg PO DAILY amlodipine 2.5 mg tablet 2.5 mg PO DAILY omeprazole 20 mg capsule,delayed release(DR/EC) 20 mg PO DAILY chlorthalidone 25 mg tablet 25 mg PO DAILY melatonin 10 mg tablet 10 mg PO DAILY hydrocodone-acetaminophen 5-325 mg Tablet 1 tab PO QID PRN (Reason: Pain ) 7 Days Qty: 28 0RF Eliquis 5 mg tablet See Rx Instructions .ROUTE .COMPLEX Qty: 74 0RF Rx Instructions: 5 mg orally ;2 PO BID x 7 days, then 1 PO BID Print Language: Portuguese Referrals: Angelito Shore MD [Primary Care Provider] - 1 week
--- NOTE | 2023-07-26 09:45 | CT_ITS ---
The [address] [address] Patient Name: SEGUNDO MCCOY MRN: [id number] date: 1950 Sex: M Assigned Patient Location: ER Current Patient Location: Accession/Order Number: [id number] Exam Date: 07/26/2023 11:44 Report Date: 07/26/2023 12:17 At the request of: GOVIND ARREGUIN Procedure: CT pelvis w con EXAM: CT pelvis w con HISTORY: poss Cony's gangrene vs scrotal abscess COMPARISON: None. TECHNIQUE: Following intravenous administration of 97 cc of Omnipaque 300, axial soft tissue windows of the pelvis were performed with coronal and sagittal reformats. CT dose reduction technique was used including Automated Exposure Control. Findings: The visualized portions of the right kidney are unremarkable. Evaluation of the bowel is limited given the absence of oral contrast. There are colonic diverticula. Otherwise, the visualized bowel loops are unremarkable without evidence of wall thickening or obstruction. The appendix is nondilated. The prostate is enlarged and exerts mass effect upon the posterior bladder wall. No bladder calculi. No enlarged pelvic lymph nodes or free pelvic fluid. Tiny left and small to moderate right inguinal hernias. The right inguinal hernia contains a portion of nonobstructed cecum. No aggressive sclerotic or lytic osseous lesions. Grade 1 anterolisthesis of L5 on S1 with bilateral pars interarticularis defects. Degenerative spondylosis. There is scrotal wall thickening. Along the right posterior lateral scrotal wall there is a focal rim-enhancing fluid collection measuring approximately 3.3 x 1.7 x 3.0 cm concerning for abscess. Within the right hemiscrotum there is an extratesticular cystic lesion measuring 2.6 cm. In addition, there is a cystic lesion within the right testis the measuring approximately 1.8 cm. No soft tissue gas. CT/CT pelvis w con IMPRESSION: 1. Scrotal wall thickening concerning for cellulitis. Focal fluid collection within the wall the right scrotum concerning for abscess. No soft tissue gas. 2. Right scrotal extratesticular cystic lesion. In addition, there is a cystic lesion within the right testi. If indicated, suggest scrotal ultrasound for further evaluation. 3. Other nonemergent findings, as described above. Electronically authenticated by: MURTAZA SALGADO Date: 07/26/2023 12:17
--- NOTE | 2023-07-26 09:45 | PC.NURSE ---
Patient reports scrotal swellling with abscess to right side of scrotum. patient reports he noticed it a few days ago while doing yard work in [place]. Patient noted to have abscess to right scrotum that is expressing purulent drainage. culture obtained from site. patient denies issues with urination.
[2023-07-26 10:15] LABS: Bilirubin Urine NEGATIVE (NEGATIVE); Blood Urine NEGATIVE (NEGATIVE); Clarity Urine CLEAR (CLEAR); Color Urine YELLOW (YELLOW); Glucose Urine UA NEGATIVE (NEGATIVE); Ketones Urine NEGATIVE (NEGATIVE); Leukocyte Esterase Urine NEGATIVE (NEGATIVE); Nitrite Urine NEGATIVE (NEGATIVE); Protein Urine NEGATIVE (NEG/TRACE); pH Urine 6.5 (5.0-9.0)
[2023-07-26 10:18] LABS: Urine Microscopic Indicated NO
[2023-07-26 10:19] LABS: Basophils Absolute Auto 0.1 10^3/uL (0.0-0.1); Basophils Percent Auto 0.4 % (0.2-2.0); Eosinophils Absolute Auto 0.2 10^3/uL (0.0-0.7); Eosinophils Percent Auto 1.2 % (0.9-7.0); Hematocrit 42.7 % (42.0-54.0); Hemoglobin 14.4 g/dL (14.0-18.0); Immature Granulocytes Abs Auto 0.05 10^3/uL (0.00-0.03); Immature Granulocytes Pct Auto 0.4 % (0.0-0.5); Lymphocytes Absolute Auto 1.9 10^3/uL (1.2-3.8); Lymphocytes Percent Auto 14.4 % (20.5-60.0); Mean Corpuscular HGB Conc 33.7 g/dL (29.9-35.2); Mean Corpuscular Hemoglobin 32.2 pg (25.9-34.0); Mean Corpuscular Volume 95.5 fL (80.0-94.0); Mean Platelet Volume 8.9 fL (9.5-13.5); Monocytes Absolute Auto 1.6 10^3/uL (0.3-0.8); Monocytes Percent Auto 11.9 % (1.7-12.0); Neutrophils Absolute Auto 9.6 10^3/uL (1.4-6.5); Neutrophils Percent Auto 71.7 % (43.0-75.0); Platelet Count 273 10^3/uL (150-450); Red Blood Count 4.47 10^6/uL (4.70-6.10); Red Cell Distribution Width 14.2 % (11.0-15.0); White Blood Count 13.4 10^3/uL (4.0-11.0)
[2023-07-26] MEDS: VANCOMYCIN HCL 1,000 MG in 0.9 % SODIUM CHLORIDE 250 ML 250 MG IV (10:34)
[2023-07-26 11:08] LABS: Lactate/Lactic Acid 1.3 mmol/L (0.4-2.0)
[2023-07-26 11:14] LABS: Alanine Aminotransferase 30 U/L (16-63); Albumin Globulin Ratio 0.8; Albumin Level 3.4 g/dL (3.4-5.0); Alkaline Phosphatase 66 U/L (46-116); Anion Gap 13.8; Aspartate Amino Transferase 21 U/L (15-37); Bilirubin Total 1.6 mg/dL (0.2-1.0); Calcium 9.6 mg/dL (8.5-10.1); Carbon Dioxide 28.5 mmol/L (21.0-32.0); Chloride 103 mmol/L (98-107); Estimated GFR (African America >60 (>=60); Estimated GFR (Non-African Ame >60 (>=60); Globulin 4.1 g/dL; Glucose 110 mg/dL (74-106); Potassium 3.3 mmol/L (3.5-5.1); Sodium 142 mmol/L (136-145); Total Protein 7.5 g/dL (6.4-8.2)
--- NOTE | 2023-07-26 16:48 | US_ITS ---
The [address] [address] Patient Name: SEGUNDO MCCOY MRN: [id number] date: 1950 Sex: M Assigned Patient Location: Current Patient Location: Accession/Order Number: [id number] Exam Date: 07/26/2023 19:30 Report Date: 07/26/2023 21:03 At the request of: SHAIKH CAPO Procedure: US scrotum EXAM TYPE: US scrotum INDICATION:scrotal abscess TECHNIQUE: Multiple images are obtained in the transverse and longitudinal dimensions. Color, briceno scale, and Doppler imaging has been performed COMPARISON: CT pelvis dated 07/26/2023 FINDINGS: The testicles are homogeneous in echotexture and symmetric in size. The right testicle measures 4.7 x 2.2 x 3.0 cm. The left testicle measures 4.2 x 2.1 x 2.7 cm. There are no suspicious solid intra-or extratesticular masses. There is tubular ectasia of the rete testes of the right testicle. There is a benign cyst within the right testicle measuring 2.1 x 1.4 x 2.1 cm. There is some minimal peripheral thickening within the cyst. There are benign cysts present in the right scrotal sac adjacent to the right testicle measuring 2.6 x 1.5 x 2.4 cm and 5.5 x 2.1 x 5.5 cm. The fluid is simple within these collections, and these may represent spermatoceles. Doppler interrogation demonstrates normal vascular flow in the testes bilaterally. The left epididymis is within normal limits.. . There is scrotal wall thickening.Small to moderate bilateral varicoceles are present measuring up to 3.2 mm in the right scrotal sac. There is also a small left hydrocele. No suspicious collections of fluid are present that would suggest abscess. US/US scrotum IMPRESSION: 1. 2 cystic fluid collections in the right scrotal sac adjacent to the right testicle favored to represent spermatoceles. 2. Tubular ectasia of the right rete testes. Benign appearing cysts within the right testicle. 3. Small to moderate varicoceles bilaterally. Small left hydrocele. 4. Scrotal wall thickening without abscess. Electronically authenticated by: JUNIOR CHAMBERLAIN Date: 07/26/2023 21:03
--- NOTE | 2023-07-26 17:48 | PC.NURSE ---
Report given to BRENDA Szymanski. Patient stable at time of hand off. patient given meal tray and patient taken to floor via nurse carpenters supervisor
--- NOTE | 2023-07-26 19:30 | PC.NURSE ---
Attempted to call report to [facility] two different ways and no one would answer the phone
--- NOTE | 2023-07-26 19:39 | PC.NURSE ---
Report given to nurse at [facility]. Aware that pt will not be picked up til about 8pm
[2023-07-26] MEDS: LACTATED RINGER'S SOLUTION 1,000 ML 100 ML IV (20:13)
[2023-07-26] MEDS: LEVOFLOXACIN IN DEXTROSE 5 % 750 MG/150 ML IV.SOLN 100 MG IV (20:13)
[2023-07-29 12:32] LABS: A. calcoaceticus-baumannii Cpx NOT DETECTED (NOT DETECTE); Bacteroides fragilis NOT DETECTED (NOT DETECTE); Candida albicans NOT DETECTED (NOT DETECTE); Candida auris NOT DETECTED (NOT DETECTE); Candida glabrata NOT DETECTED (NOT DETECTE); Candida krusei NOT DETECTED (NOT DETECTE); Candida parapsilosis NOT DETECTED (NOT DETECTE); Candida tropicalis NOT DETECTED (NOT DETECTE); Cryptococcus neoformans/gattii NOT DETECTED (NOT DETECTE); Enterobacter cloacae complex NOT DETECTED (NOT DETECTE); Enterobacterales NOT DETECTED (NOT DETECTE); Enterococcus faecalis NOT DETECTED (NOT DETECTE); Enterococcus faecium NOT DETECTED (NOT DETECTE); Haemophilus influenzae NOT DETECTED (NOT DETECTE); Klebsiella aerogenes NOT DETECTED (NOT DETECTE); Klebsiella pneumoniae group NOT DETECTED (NOT DETECTE); Listeria monocytogenes NOT DETECTED (NOT DETECTE); Neisseria meningitidis NOT DETECTED (NOT DETECTE); Proteus spp. NOT DETECTED (NOT DETECTE); Pseudomonas aeruginosa NOT DETECTED (NOT DETECTE); Salmonella spp. NOT DETECTED (NOT DETECTE); Serratia marcescens NOT DETECTED (NOT DETECTE); Staphylococcus epidermidis NOT DETECTED (NOT DETECTE); Staphylococcus lugdunensis NOT DETECTED (NOT DETECTE); Staphylococcus spp. NOT DETECTED (NOT DETECTE); Stenotrophomonas maltophilia NOT DETECTED (NOT DETECTE); Streptococcus agalactiae NOT DETECTED (NOT DETECTE); Streptococcus pneumoniae NOT DETECTED (NOT DETECTE); Streptococcus pyogenes NOT DETECTED (NOT DETECTE); Streptococcus spp. NOT DETECTED (NOT DETECTE)
[2023-07-29 13:47] LABS: Source blood
--- NOTE | 2023-08-15 17:26 | P.IMPN_ITS ---
Internal Medicine - PN: Subj Subjective Interval history: Patient presented to ED with scrotal swelling, pain and purulent discharge. Work up in ED consistent with scrotal cellulitis abscess. Since we did not have Urology coverage, patient was transfered to [facility]. However, given the delay and avoid prolonged ED stay - he was admitted until a bed was available. I put in admission orders for him and started him on IVF, IV vancomycin and Levaquin. As soon as he arrived on floor, community action worker received a phone call that bed was available for him at [facility] so he was discharged to [facility] before he was seen in person by me. Admission Diagnosis Scrotal abscess/cellulitis HTN GERD Leukocytosis Discharge diagnosis as above. Exam Constitutional Vital Signs, click to edit/add: Last Vital Signs Temp 98.3 F 07/26/23 19:50 Pulse 70 07/26/23 20:00 Resp 16 07/26/23 19:50 BP 154/76 H 07/26/23 19:50 Pulse Ox 97 07/26/23 19:56 O2 Del Method Room Air 07/26/23 19:56
== END 2023-07-26 20:35 | disposition short-term general hospital (02) ==
LOC: ER 16:53 → MS 17:58
PROVIDERS: Admitting Provider Internal Medicine; Emergency Provider Emergency Medicine; PCP Family Medicine; Visit Provider Internal Medicine
DX: N49.2 Inflammatory disorders of scrotum (principal); I10 Essential (primary) hypertension; K21.9 Gastro-esophageal reflux disease without esophagitis; D72.829 Elevated white blood cell count, unspecified; B96.89 Other specified bacterial agents as the cause of diseases classified elsewhere
CPT/HCPCS: 36415; 72193; 76870; 80053; 81003; 83605; 85025; 87040; 87070; 87076; 87150; 94761; 96365; 96366; 96367; 99285; G0378; J3370; Q9967

== ENCOUNTER 2023-11-14 12:39 | Outpatient (OUT) | payer MEDICARE, SELFPAY ==
--- NOTE | 2023-11-14 13:05 | CT_ITS ---
[address] [address] Patient Name: SEGUNDO MCCOY MRN: [id number] date: 1950 Sex: M Assigned Patient Location: CT Current Patient Location: Accession/Order Number: [id number] Exam Date: 11/14/2023 13:00 Report Date: 11/15/2023 10:41 At the request of: IKER QUINTERO Procedure: CT chest wo con EXAMINATION: CT chest wo con HISTORY: LEFT LOWER NODULE ; follow-up left lower lobe nodule COMPARISON: CTA chest 05/12/2023 TECHNIQUE: Axial, Coronal, and Sagittal images were created without the administration of IV contrast material. Dose reduction techniques were achieved by using automated exposure control and/or adjustment of mA and/or kV according to patient size and/or use of iterative reconstruction technique. FINDINGS: LUNGS: A few small nodules scattered within the lungs; some calcified and some noncalcified. The 2 largest noncalcified nodules are 6 oh meter nodule within posterior segment of left upper lobe at level of the hilum and a 5 mm nodule within anterior basilar segment of left lower lobe. No appreciable change. PLEURA: No mass, effusion, or pneumothorax. VASCULATURE: No abnormality. LINDA: Calcified lymph nodes compatible with chronic granulomatous disease. MEDIASTINUM: Calcified lymph nodes. CARDIAC: No enlargement, pericardial thickening, or pericardial effusion. Coronary Artery calcifications: Coronary calcifications are mild. AORTA: Borderline dilation of ascending thoracic aorta, 4.0 cm. CHEST WALL: No mass or axillary adenopathy BONES: Advanced degenerative changes of the glenohumeral joints. LIMITED ABDOMEN: No suspicious findings. Limited images of the upper abdomen. OTHER: Negative. CT/CT chest wo con IMPRESSION: 1. Stable small pulmonary nodules; nonspecific but favoring chronic granulomatous disease. Consider additional follow-up in one year to document stability. Electronically authenticated by: MADISON SUERO Date: 11/15/2023 10:41
== END 2023-11-14 12:40 | disposition home or self-care (01) ==
LOC: CT 12:40
PROVIDERS: PCP Family Medicine; Visit Provider Family Medicine
DX: R91.1 Solitary pulmonary nodule (principal)
CPT/HCPCS: 71250